=== PATIENT | female | born 1945 | race Caucasian/White ===

== ENCOUNTER → 2017-08-22 | Outpatient (CLI) | payer MEDICARE, OTHER ==
[~2017-08-22] MED LIST: Z.0.DIAZEPAM10 MG PO; Z.0.LEXAPRO10 MG PO; Z.0.METOPROLOL SUC10 PO
--- NOTE | 2017-08-23 08:27 | Diagnostic Imaging Report ---
Examination: MRI SPINE LUMBAR WITHOUT CONTRAST History: Fall in May, now presents with pain and numbness down the right leg and toe and back pain. Comparison studies: None Technique: Sagittal, coronal and axial T2 , sagittal T1 and STIR; axial spin density oblique. Findings: Number of lumbar vertebral bodies: Five. Alignment: Normal lordosis. No scoliosis. Soft tissues: No T2 hyperintense inflammatory changes. Posterior paraspinal soft tissues and muscles: No abnormality. Lower thoracic cord: Normal in signal and morphology. The tip of the conus is at T12-L1 . Cauda equina: No masses. No arachnoiditis. Vertebrae: No fractures, infection or neoplasm. Degenerative type II Modic changes of the inferior and superior endplates of L4 and L5, respectively. Degenerative changes: T12-L1: Diffuse disc bulge and mild bilateral facet arthropathy result in mild right neural foraminal narrowing and mild canal stenosis. No left foraminal narrowing. L1-L2: Mild bilateral facet arthropathy. No foraminal or canal stenosis. L2-L3: Diffuse disc bulge and mild bilateral facet arthropathy. No canal or foraminal stenosis. L3-L4: Grade I anterolisthesis without pars defect. Uncovering of a diffuse disc bulge and mild bilateral facet arthropathy result in severe canal stenosis. No foraminal stenosis. L4-L5: Diffuse disc bulge, mild ligamentum flavum thickening and mild bilateral facet arthropathy result in moderate right foraminal narrowing and severe canal stenosis. No left foraminal narrowing. L5-S1: No degenerative disc or foraminal or canal stenosis. IMPRESSION: 1. No compression fracture. 2. Degenerative changes from T12-L1 through L4-L5 with severe canal stenosis at L3-L4 and L4-L5. Moderate right foraminal narrowing at L4-L5. Signed by: Dr. Mihaela Tilley M.D. on 08/23/2017 8:23 AM
== END | disposition home or self-care (01) ==
LOC: MRI 14:42
PROVIDERS: ATTEND Family Medicine
DX: M54.16 Radiculopathy, lumbar region (principal); M47.815 Spondylosis without myelopathy or radiculopathy, thoracolumbar region; M47.816 Spondylosis without myelopathy or radiculopathy, lumbar region
CPT/HCPCS: 72148

== ENCOUNTER → 2021-02-22 | Outpatient (CLI) | payer MEDICARE, OTHER | LOC: MAMMO 12:30 | PROVIDERS: ATTEND Family Medicine | DX: Z12.31 Encounter for screening mammogram for malignant neoplasm of breast (principal) | CPT/HCPCS: 77067 ==

== ENCOUNTER → 2022-02-24 | Outpatient (CLI) | payer MEDICARE, OTHER | LOC: MAMMO 12:31 | PROVIDERS: ATTEND Family Medicine | DX: Z12.31 Encounter for screening mammogram for malignant neoplasm of breast (principal) | CPT/HCPCS: 77067 ==

== ENCOUNTER → 2023-02-28 | Outpatient (REF) | payer MEDICARE, OTHER | LOC: MAMMO 13:04 | PROVIDERS: ATTEND Family Medicine | DX: Z12.31 Encounter for screening mammogram for malignant neoplasm of breast (principal) | CPT/HCPCS: 77067 ==

== ENCOUNTER → 2024-02-29 | Outpatient (REF) | payer MEDICARE, OTHER | LOC: MAMMO 10:33 | PROVIDERS: ATTEND Family Medicine | DX: Z12.31 Encounter for screening mammogram for malignant neoplasm of breast (principal) | CPT/HCPCS: 77067 ==

== ENCOUNTER → 2024-06-26 | Outpatient (REF) | payer MEDICARE | LOC: DX 12:24 | PROVIDERS: ATTEND Family Medicine | DX: M85.88 Other specified disorders of bone density and structure, other site (principal) | CPT/HCPCS: 77080 ==